=== PATIENT | male | born 1985 | race Caucasian/White ===

== ENCOUNTER 2018-10-14 18:16 | Emergency (ER) | payer SELFPAY ==
[~2018-10-14] VITALS: Ht 170.2 cm; Wt 68.2 kg
[~2018-10-14 18:16] MED LIST: ANUSOL HC25 MG/SUPP RC; CLEOCIN HC150 MG/CAP PO; LORTAB 5/500 501 TAB PO; NO HOME MEDICATIONS; VICODIN 5/5001 UDTAB PO
[2018-10-14 18:21] VITALS: BP 127/68; TEMP 97.6
[2018-10-14 19:50] VITALS: PULSE 60
== END 2018-10-14 19:50 | disposition home or self-care (01) ==
LOC: COL.ER 18:16
DX: F07.81 Postconcussional syndrome (principal); F17.210 Nicotine dependence, cigarettes, uncomplicated; F12.10 Cannabis abuse, uncomplicated; Z88.0 Allergy status to penicillin